=== PATIENT | female | born 1970 | race Caucasian/White ===

== ENCOUNTER 2018-03-24 14:59 | Inpatient (IN) | payer OTHER ==
[~2018-03-24] VITALS: Ht 170.2 cm; Wt 74.0 kg
[~2018-03-24 14:59] MED LIST: LEVO125T63 PO
[2018-03-24] MEDS ORDERED: SODIUM CHLORIDE FLUSH 10ML SYR IVF ONE (15:30)
[2018-03-24 15:40] LABS: BASOPHILS # (AUTO) 0.03 x10^3/uL (0-0.1); BASOPHILS % (AUTO) 0 % (0-1); EOSINOPHILS # (AUTO) 0.07 x10^3/uL (0-0.4); EOSINOPHILS % (AUTO) 1 % (1-7); LYMPHOCYTES # (AUTO) 2.22 x10^3/uL (1-3.4); LYMPHOCYTES % (AUTO) 25 % (22-44); MD NO; MEAN CORPUSCULAR HEMOGLOBIN 32.1 pg (27.0-34.8); MEAN CORPUSCULAR HGB CONC 33.5 g/dL (32.4-35.8); MEAN CORPUSCULAR VOLUME 95.8 fL (80-100); MEAN PLATELET VOLUME 9.1 fL (7.4-10.4); MONOCYTES # (AUTO) 0.49 x10^3/uL (0.2-0.8); MONOCYTES % (AUTO) 6 % (2-9); NEUTROPHILS % (AUTO) 69 % (42-75); PLATELET COUNT 271 x10^3/uL (130-400); RED BLOOD COUNT 4.12 x10^6/uL (3.82-5.3)
[2018-03-24] MEDS ORDERED: MORPHINE SULFATE 4 MG/ML, 1ML ONE (15:40)
[2018-03-24] MEDS ORDERED: ONDANSETRON ODT 4 MG ONE (15:40)
[2018-03-24] MEDS ORDERED: PIPERACILLIN/TAZO/PMX 3.375GM 50 ML ONE (15:40)
[2018-03-24 15:50] LABS: ALANINE AMINOTRANSFERASE 53 U/L (12-78); ALBUMIN 3.8 g/dL (3.4-5.0); ANION GAP 5 mmol/L (5-15); CALCIUM 8.7 mg/dL (8.5-10.1); CHLORIDE 108 mmol/L (98-107); CREATININE 0.88 mg/dL (0.55-1.02)
[2018-03-24] MEDS: MORPHINE SULFATE 4 MG/ML, 1ML IVPush PRN ×3 (15:50→18:21)
[2018-03-24 15:52] LABS: ALKALINE PHOSPHATASE 64 U/L (45-117); BILIRUBIN,TOTAL 0.2 mg/dL (0.2-1.0); TOTAL PROTEIN 7.8 g/dL (6.4-8.2)
[2018-03-24] MEDS ORDERED: SULF1TAB24 PO (15:59)
[2018-03-24] MEDS ORDERED: ONDANSETRON ODT 4 MG PO ONE (16:00)
[2018-03-24] MEDS ORDERED: PIPERACILLIN/TAZO/PMX 3.375GM 50 ML IVPB ONE (16:00)
[2018-03-24] MEDS ORDERED: SODIUM CHLORIDE FLUSH 10ML SYR IVF PRN (17:00)
[2018-03-24] MEDS: HEPARIN 5,000 UNITS/ML, 1ML SQ SCH (17:30)
[2018-03-24] MEDS ORDERED: hydrALAzine 20 MG/ML, 1ML IVPush PRN (17:30)
[2018-03-24] MEDS ORDERED: ACETAMINOPHEN 325 MG TABLET PO PRN (17:30)
[2018-03-24] MEDS ORDERED: KETOROLAC 30 MG/1 ML IM SCH (17:30)
[2018-03-24] MEDS: SODIUM CHLORIDE 0.9% 1,000 ML IV SCH (18:32)
[2018-03-24] MEDS: HYDROcodone/APAP 5/325 TABLET PO PRN ×2 (18:32→22:34)
[2018-03-24] MEDS: KETOROLAC 30 MG/1 ML IVPush SCH (18:35)
[2018-03-24 19:36] VITALS: BP 106/68
[2018-03-24 21:56] VITALS: BP 106/68
[2018-03-24] MEDS: PIPERACILLIN/TAZO/PMX 3.375GM 50 ML IV SCH (21:56)
[2018-03-24] MEDS ORDERED: KETOROLAC 30 MG/1 ML IVPush SCH (23:30)
[2018-03-25] MEDS: KETOROLAC 30 MG/1 ML IVPush SCH ×4 (00:39→21:06)
[2018-03-25 00:44] VITALS: BP 90/57
[2018-03-25] MEDS: HEPARIN 5,000 UNITS/ML, 1ML SQ SCH ×3 (01:21→17:30)
[2018-03-25] MEDS: PIPERACILLIN/TAZO/PMX 3.375GM 50 ML IV SCH ×4 (03:31→23:10)
[2018-03-25] MEDS: SODIUM CHLORIDE 0.9% 1,000 ML IV SCH ×2 (03:32→17:23)
[2018-03-25 04:51] LABS: ANION GAP 3 mmol/L (5-15); CALCIUM 7.7 mg/dL (8.5-10.1); CHLORIDE 112 mmol/L (98-107); CREATININE 0.78 mg/dL (0.55-1.02)
[2018-03-25 04:53] LABS: BASOPHILS # (AUTO) 0.03 x10^3/uL (0-0.1); BASOPHILS % (AUTO) 1 % (0-1); EOSINOPHILS # (AUTO) 0.14 x10^3/uL (0-0.4); EOSINOPHILS % (AUTO) 2 % (1-7); LYMPHOCYTES # (AUTO) 2.76 x10^3/uL (1-3.4); LYMPHOCYTES % (AUTO) 46 % (22-44); MD NO; MEAN CORPUSCULAR HEMOGLOBIN 32.5 pg (27.0-34.8); MEAN CORPUSCULAR HGB CONC 33.9 g/dL (32.4-35.8); MEAN PLATELET VOLUME 8.8 fL (7.4-10.4); MONOCYTES # (AUTO) 0.63 x10^3/uL (0.2-0.8); MONOCYTES % (AUTO) 11 % (2-9); NEUTROPHILS # (AUTO) 2.43 x10^3/uL (1.8-6.8); NEUTROPHILS % (AUTO) 41 % (42-75); PLATELET COUNT 220 x10^3/uL (130-400); RED BLOOD COUNT 3.36 x10^6/uL (3.82-5.3); RED CELL DISTRIBUTION WIDTH 13.1 % (9.6-15.2)
[2018-03-25 08:23] VITALS: BP 83/47
[2018-03-25] MEDS ORDERED: SUMATRIPTAN 50 MG TABLET PO PRN (09:00)
[2018-03-25] MEDS ORDERED: SODIUM CHLORIDE 0.9% 1,000ML IVBOLUS ONE (10:00)
[2018-03-25] MEDS: LEVOTHYROXINE 125 MCG TABLET PO SCH (10:16)
[2018-03-25] MEDS: CALCIUM CARBONATE 500 MG TABLET PO SCH ×2 (10:16→21:06)
[2018-03-25] MEDS ORDERED: KETOROLAC 30 MG/1 ML ONE (11:49)
[2018-03-25 15:59] VITALS: BP 89/57
[2018-03-25 19:47] VITALS: BP_SYST 85; BP_SYST 94; BP_DIAS 52; BP_DIAS 66
[2018-03-26] MEDS: HEPARIN 5,000 UNITS/ML, 1ML SQ SCH ×2 (00:10→08:37)
[2018-03-26 01:38] VITALS: BP 90/57
[2018-03-26] MEDS: SODIUM CHLORIDE 0.9% 1,000 ML IV SCH ×2 (01:42→11:30)
[2018-03-26] MEDS: PIPERACILLIN/TAZO/PMX 3.375GM 50 ML IV SCH ×2 (05:15→11:29)
[2018-03-26 07:15] VITALS: BP 108/65
[2018-03-26] MEDS: KETOROLAC 30 MG/1 ML IVPush SCH (08:36)
[2018-03-26] MEDS: CALCIUM CARBONATE 500 MG TABLET PO SCH (08:36)
[2018-03-26] MEDS: LEVOTHYROXINE 125 MCG TABLET PO SCH (08:36)
[2018-03-26 13:57] VITALS: BP 97/65
[2018-03-26] MEDS ORDERED: ACET325T14 PO (13:57)
[2018-03-26] MEDS ORDERED: CIPR500T87 PO (13:57)
[2018-03-26] MEDS ORDERED: CIPROFLOXACIN 500 MG TABLET PO SCH (21:00)
== END 2018-03-26 16:05 | disposition home or self-care (01) | DRG 603 ==
LOC: ED 15:55 → EDIP 16:31 → 3NE 17:20 → DCLOUNGE 03-26 15:53
PROVIDERS: ADMIT Internal Medicine; ATTEND Internal Medicine
DX: L03.115 Cellulitis of right lower limb (principal); D64.9 Anemia, unspecified; I95.9 Hypotension, unspecified; B96.89 Other specified bacterial agents as the cause of diseases classified elsewhere; E03.9 Hypothyroidism, unspecified; G43.909 Migraine, unspecified, not intractable, without status migrainosus; S99.821A Other specified injuries of right foot, initial encounter; X58.XXXA Exposure to other specified factors, initial encounter; Z80.8 Family history of malignant neoplasm of other organs or systems; Z72.0 Tobacco use; Z82.3 Family history of stroke; Z82.49 Family history of ischemic heart disease and other diseases of the circulatory system; Z90.49 Acquired absence of other specified parts of digestive tract; Z88.6 Allergy status to analgesic agent; Z88.8 Allergy status to other drugs, medicaments and biological substances; Y93.89 Activity, other specified; Y92.89 Other specified places as the place of occurrence of the external cause; Y99.8 Other external cause status
CPT/HCPCS: 36415; 80048; 80053; 83605; 84443; 85025; 87040; 96365; 96366; J1885; J2543; Q0162; J7030